=== PATIENT | female | born 1995 | race Caucasian/White ===

== ENCOUNTER 2020-04-06 13:30 | Emergency (ER) | payer OTHER, SELFPAY ==
[2020-04-06 13:41] VITALS: BP 104/67; PULSE 89; RESP 16; TEMP 37.4; O2SAT 100
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
== END 2020-04-06 14:11 | disposition home or self-care (01) ==
PROVIDERS: Emergency Provider Nurse Practitioner Family; PCP Internal Medicine
DX: M54.2 Cervicalgia (principal); F17.210 Nicotine dependence, cigarettes, uncomplicated; F41.9 Anxiety disorder, unspecified; F32.9 Major depressive disorder, single episode, unspecified
CPT/HCPCS: 99211; G0463